=== PATIENT | male | born 1995 ===

== ENCOUNTER 2019-02-17 20:18 | Emergency (ER) | payer SELFPAY ==
[2019-02-17 20:52] VITALS: BMI 32.5
[2019-02-17 20:53] VITALS: RESP 18
[2019-02-17] MEDS ORDERED: Lidocaine 1% HCL/PF 100 MG/10 ML AMPUL IJ STA (21:09)
[2019-02-17] MEDS ORDERED: Lidocaine Hydrochloride 5 ML INJ ONE (21:31)
--- NOTE | 2019-02-17 21:46 | ED PDOC ---
HPI: Skin/Bite Injury Time Seen by Provider: 02/17/19 21:01 Chief Complaint (Nursing): Abnormal Skin Integrity History Per: Patient History/Exam Limitations: no limitations Onset/Duration Of Symptoms: Hrs Additional Complaint(s): 23 yo healthy M presents for laceration left eye brow about 1 hour [employer]. Pt reports playing basketball when he collided with another player who was wearing protective eye wear, which hit him in the head. Pt reports he went home, cleaned it with hydrogen peroxide and noticed it was deep so came for evaluation. He reports mild pressure to area 3/10. No meds taken. Denies LOC, lightheaded/di zzy, neck pain, changes in vision, nausea or vomiting, difficulty walking. PMD: clinic tetanus UTD Past Medical History Reviewed: Historical Data, Nursing Documentation, Vital Signs Vital Signs: Last Vital Signs Temp 98.3 F 02/17/19 20:52 Pulse 98 H 02/17/19 20:52 Resp 18 02/17/19 20:52 BP 118/65 02/17/19 20:52 Pulse Ox 99 02/17/19 20:52 Primary Care Provider: Procedure,Nonphys - Medical History PMH: No Chronic Diseases - Family History Family History: States: Unknown Family Hx - Immunization History Hx Tetanus Toxoid Vaccination: No Hx Influenza Vaccination: Yes Hx Pneumococcal Vaccination: No - Home Medications Home Medications: Ambulatory Orders Medication Instructions Recorded Meloxicam [Mobic] 7.5 mg PO DAILY PRN #30 tab 01/29/16 Methocarbamol [Robaxin] 500 mg PO Q8 PRN #30 tab 01/29/16 Bacitracin OINT 1 applic TP BID #1 tube 02/17/19 - Allergies Allergies/Adverse Reactions: Allergies Allergy/AdvReac Type Severity Reaction Status Date / Time No Known Allergies Allergy Verified 02/17/19 20:52 Review of Systems Constitutional: Negative for: Fever Eyes: Negative for: Pain, Vision Change Musculoskeletal: Negative for: Neck Pain Neurological: Positive for: Headache. Negative for: Weakness, Numbness, Confusion, Altered Mental Status, Dizziness Physical Exam - Reviewed Nursing Documentation Reviewed: Yes Vital Signs Reviewed: Yes - Physical Exam Comments: GENERALIZED APPEARANCE: Patient is AAO x 3 in no distress. SKIN: Warm, dry; (-) cyanosis. HEAD: + 3cm superficial linear laceration to pararllel through eyebrow; no scalp swelling or tenderness, no palpable bony defect. EYES: (-) conjunctival pallor, (-) scleral icterus, (-) nystagmus. EOMI, PERRLA, no periorbital swelling or erythema ENMT: Mucous membranes moist. (-) Freitas's sign. TMs: (-) blood. Nose: (-) tenderness, (-)rhinorrhea. No oral trauma. Pharynx clear. Airway patent: (-) stridor. Full ROM of mandiblewithout pain. NECK: (-) tenderness, (-) stiffness, (-) lymphadenopathy. CHEST AND RESPIRATORY: (-) chest wall tenderness. Lungs: (-) rales, (-) rhonchi, (-)wheezes; breath sounds equal bilaterally. HEART AND CARDIOVASCULAR: (-) irregularity; (-) murmur, (-) gallop. ABDOMEN AND GI: Soft; (-) tenderness. BACK: (-) tenderness. EXTREMITIES: (-) deformity, (-) tenderness, (-) limitation of motion NEURO AND PSYCH: GCS=15. Mental status as above. 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 EOMI. (-) facial asymmetry. Tongue and uvula midline. Strength 5/5 in allextremities. No gross sensory deficits. DTRs symmetric. - ECG O2 Sat by Pulse Oximetry: 99 Medical Decision Making Medical Decision Makin:01 initial eval -- superficial laceration -- laceration repair with sutures -- ibuprofen PO pt tolerate procedure well, wound cleaned, bacitracin applied Discussed results, diagnosis, treatment, wound care, return precautions and f/u with pt who is understanding, in agreement and stable for dc Disposition - Clinical Impression Clinical Impression: Laceration of eyebrow, left, Head injury - Patient ED Disposition Is Patient to be Admitted: No Counseled Patient/Family Regarding: Studies Performed, Diagnosis, Need For Followup, Rx Given - Disposition Referrals: [facility], [facility] within [facility] [Outside] Pauline Rudd MD [Medical Doctor] - Disposition: Routine/Home Disposition Time: 22:46 Condition: STABLE Additional Instructions: Thank you for letting us take care of you today. The emergency medical care you received today was directed at your acute symptoms. Keep wound clean, dry and covered during the day. Do not get wet for 24 hours, do not soak in water. clean gently with soap and water. Apply ice for swelling. Take Tylenol or ibuprofen for pain. Apply bacitracin/neosporin 1-2 times a day. It may take several days for your symptoms to resolve. Return to the Emergency Department if your symptoms worsen, do not improve, or if you have any other problems, such as fever >100.4, increase redness or swelling, foul odor or drainage. Come back to the ED in 1 week for wound check and suture removal Please contact your doctor in 2 days for re-evaluation and follow up / or call one of the physicians/clinics you have been referred to that are listed on the Patient Visit Information form that is included in your discharge packet. Bring any paperwork you were given at discharge with you along with any medications you are taking to your follow up visit. Our treatment cannot replace ongoing medical care by a primary care provider (PCP) outside of the emergency department. Prescriptions: Bacitracin OINT 1 applic TP BID #1 tube Instructions: Wound Care, Laceration Repair With Stitches (DC), Minor Head Injury Print Language: MALAY - POA Present On Arrival: None Procedures - Time-Out Type of Procedure: laceration - Laceration/Wound Repair Head Wound Length (cm): 3 Wound's Depth, Shape: superficial, linear Wound Explored: clean Irrigated w/ Saline (ccs): 250 Anesthesia: 1% Lidocaine Volume Anesthetic (ccs): 5 Wound Repaired With: Sutures Suture Size/Type: 6:0, proline Number of Sutures: 9 Wound Complexity: Simple
[2019-02-17 23:02] VITALS: BP 116/70; PULSE 90; TEMP 98.6; O2SAT 98
== END 2019-02-17 22:53 | disposition home or self-care (01) ==
LOC: H.ER 20:18
DX: S09.90XA Unspecified injury of head, initial encounter (principal); S01.112A Laceration without foreign body of left eyelid and periocular area, initial encounter; W51.XXXA Accidental striking against or bumped into by another person, initial encounter; Y93.67 Activity, basketball

== ENCOUNTER 2019-02-25 22:14 | Emergency (ER) | payer SELFPAY ==
[2019-02-25 22:14] VITALS: BMI 32.5
[2019-02-25 22:34] VITALS: BP 122/76; PULSE 74; RESP 16; TEMP 98.4; O2SAT 99
--- NOTE | 2019-02-25 23:12 | ED PDOC ---
HPI: Wound Care - HPI Time Seen by Provider: 02/25/19 22:27 Chief Complaint (Nursing): Suture/Staple Removal Chief Complaint (Provider): Suture removal History Per: Patient Exam Limitations: no limitations Onset/Duration Of Symptoms: Days Additional Complaint(s): 23 yo male with no medical problems presents for suture removal. Sutures place on 02/17. Pt denies complaints. Past Medical History Reviewed: Historical Data, Nursing Documentation, Vital Signs Vital Signs: Last Vital Signs Temp 98.4 F 02/25/19 22:32 Pulse 74 02/25/19 22:32 Resp 16 02/25/19 22:32 BP 122/76 02/25/19 22:32 Pulse Ox 99 02/25/19 22:32 - Medical History PMH: No Chronic Diseases - Surgical History Surgical History: No Surg Hx - Family History Family History: States: Unknown Family Hx - Living Arrangements Living Arrangements: With Family - Immunization History Hx Tetanus Toxoid Vaccination: No Hx Influenza Vaccination: Yes Hx Pneumococcal Vaccination: No - Home Medications Home Medications: Ambulatory Orders Medication Instructions Recorded Meloxicam [Mobic] 7.5 mg PO DAILY PRN #30 tab 01/29/16 Methocarbamol [Robaxin] 500 mg PO Q8 PRN #30 tab 01/29/16 Bacitracin OINT 1 applic TP BID #1 tube 02/17/19 - Allergies Allergies/Adverse Reactions: Allergies Allergy/AdvReac Type Severity Reaction Status Date / Time No Known Allergies Allergy Verified 02/17/19 20:52 Review of Systems ROS Statement: Except As Marked, All Systems Reviewed And Found Negative Constitutional: Negative for: Fever, Chills Skin: Positive for: Other Physical Exam - Reviewed Nursing Documentation Reviewed: Yes Vital Signs Reviewed: Yes - Physical Exam Appears: Positive for: Well, Non-toxic, No Acute Distress Head Exam: Positive for: ATRAUMATIC, NORMAL INSPECTION, NORMOCEPHALIC Skin: Positive for: Warm. Negative for: Normal Color (Well healing laceration, left eyebrow, without erythema, edema or drainage ) Eye Exam: Positive for: Normal appearance ENT: Positive for: Normal ENT Inspection Neck: Positive for: Normal, Painless ROM Cardiovascular/Chest: Negative for: Bradycardia, Tachycardia Respiratory: Negative for: Accessory Muscle Use, Respiratory Distress Back: Positive for: Normal Inspection Extremity: Positive for: Normal ROM Neurological/Psych: Positive for: Awake, Alert, Normal Tone - ECG O2 Sat by Pulse Oximetry: 99 Medical Decision Making Medical Decision Making: #9 sutures easily removed from left eyebrow with #11 blade and suture removal kit. Disposition - Clinical Impression Clinical Impression: Removal of suture - Patient ED Disposition Is Patient to be Admitted: No Counseled Patient/Family Regarding: Diagnosis, Need For Followup - Disposition Disposition: Routine/Home Disposition Time: 23:11 Condition: GOOD Instructions: Stitches Removal Forms: [employer] (Romanian)
== END 2019-02-25 23:20 | disposition home or self-care (01) ==
LOC: H.ER 22:14
DX: Z48.02 Encounter for removal of sutures (principal)